=== PATIENT | male | born 1950 | race Caucasian/White ===

== ENCOUNTER 2023-05-26 08:45 | Day surgery (SDC) | payer OTHER ==
[~2023-05-26 08:45] MED LIST: ACETAZOLAMIDE 250 MG TABLET PO ONE; Ak-Dilate OPHTHALMIC*** 1.065 ML, Cyclogyl 1% OPHTH SOL 1.065 ML, GATIFLOXACIN 0.5% OPH... OP ONE; BETADINE 5% OPHTHALMIC 30 ML OP ONE; Lactated Ringers 1,000 ML IV SCH; NON-FORMULARY ITEM OP ONE; TETRACAINE 0.5% STERI-UNIT SOL OP ONE; Zofran 4 MG/2 ML VIAL IV PRN; cefUROXime sodium 0.005 GM in Sodium Chloride Flush 30 ML*** 0.5 ML IJ ONE
[2023-05-26] MEDS ORDERED: Epinephrine Preservative Free 1 MG/ML IJ ONE (08:46)
[2023-05-26] MEDS ORDERED: LIDOCAINE HCL 1% 50 MG/5 ML VL PF IJ ONE (08:46)
[2023-05-26] MEDS ORDERED: NON-FORMULARY ITEM OP ONE (09:00)
[2023-05-26] MEDS ORDERED: Lactated Ringers 1,000 ML IV ONE (09:08)
[2023-05-26] MEDS: TETRACAINE 0.5% STERI-UNIT SOL OP ONE ×2 (09:31→10:11)
[2023-05-26] MEDS: Ak-Dilate OPHTHALMIC*** 1.065 ML, Cyclogyl 1% OPHTH SOL 1.065 ML, GATIFLOXACIN 0.5% OPH... OP ONE (09:43)
[2023-05-26] MEDS: Lactated Ringers 1,000 ML IV SCH (09:43)
[2023-05-26] MEDS ORDERED: SUBLIMAZE 100 MCG/2 ML ONE (11:53)
[2023-05-26] MEDS ORDERED: Versed 2 MG/2 ML Injection ONE (11:53)
[2023-05-26] MEDS ORDERED: DIPRIVAN 200 MG/20 ML IV ONE (11:53)
[2023-05-26] MEDS ORDERED: Zofran 4 MG/2 ML VIAL IV PRN (12:00)
[2023-05-26 12:32] VITALS: RESP 18
[2023-05-26] MEDS: ACETAZOLAMIDE 250 MG TABLET PO ONE (12:33)
[2023-05-26] MEDS: cefUROXime sodium 0.005 GM in Sodium Chloride Flush 30 ML*** 0.5 ML IJ ONE (12:33)
[2023-05-26] MEDS: BETADINE 5% OPHTHALMIC 30 ML OP ONE (12:33)
[2023-05-26 12:42] VITALS: O2SAT 99
[2023-05-26 12:50] VITALS: BP 139/82; PULSE 67; TEMP 97.8
== END 2023-05-26 13:02 | disposition home or self-care (01) ==
LOC: SDC 08:45
PROVIDERS: ATTEND Ophthalmology
DX: H25.812 Combined forms of age-related cataract, left eye (principal); E11.9 Type 2 diabetes mellitus without complications
CPT/HCPCS: 82947; C1780; J0171; J2001; J2250; J2704; J3010; A9270-GY